=== PATIENT | female | born 1975 | race African-American/Black ===

== ENCOUNTER 2016-10-23 14:21 | Emergency (ER) | payer SELFPAY ==
[2016-10-23 14:25] VITALS: BP 155/94; PULSE 100; TEMP 98; BMI 56.4
--- NOTE | 2016-10-23 15:29 | PDOC ---
History of Present Illness - General Chief Complaint: Wound Infection Stated Complaint: R HAND FINGER SWOLLEN/PAIN Time Seen by Provider: 10/23/16 15:05 History Source: Patient Exam Limitations: No Limitations - History of Present Illness Initial Comments: 10/23/16 15:21 Patient is a 41-year-old female presents emergency department for evaluation of infection to cuticle base of right third finger citucle base. Patient reports that she had acrylic nails on, cracked nail and then had it fixed, started to have pain and then soaked the acrylic off. Noticed discoloration and pain to the cuticle base of the finger. Past Medical History: Denies. Allergies: No known allergies Medications: see medication list Family History: Non-contributory Social History: Denies smoking, alcohol use, or IVDU Review of Systems GENERAL/CONSTITUTIONAL: No fever or chills. No weakness. No weight change. HEAD, EYES, EARS, NOSE AND THROAT: No change in vision. No ear pain or discharge. No sore throat. CARDIOVASCULAR: No chest pain or shortness of breath. RESPIRATORY: No cough, wheezing, or hemoptysis. GASTROINTESTINAL: No nausea, vomiting, diarrhea or constipation. No rectal bleeding. GENITOURINARY: No dysuria, frequency, or change in urination. MUSCULOSKELETAL: No joint or muscle swelling or pain. No neck or back pain. SKIN AND BREASTS: No rash or easy bruising. Pale swollen cuticle base and tip of the right third finger. Physical Exam: GENERAL: The patient is awake, alert, and fully oriented, in no acute distress. HEAD: Normal with no signs of trauma. EYES: Pupils equal, round and reactive to light, extraocular movements intact, sclera anicteric, conjunctiva clear. ENT: Ears normal, nares patent, oropharynx clear without exudates. Moist mucous membranes. No uvula deviation NECK: Normal range of motion, supple without lymphadenopathy, JVD, or masses. LUNGS: Breath sounds equal, clear to auscultation bilaterally. No wheezes, and no crackles. HEART: Regular rate and rhythm, normal S1 and S2 without murmur, rub or gallop. ABDOMEN: Soft, nontender, normoactive bowel sounds. No guarding, no rebound. No masses. No bruising or abrasions RECTAL : Guaiac negative, normal rectal tone. MUSCULOSKELETAL: Normal range of motion, no edema. No clubbing or cyanosis. No cords, erythema, or tenderness. No CVA Tenderness with fist. NEUROLOGICAL: Cranial nerves II through XII grossly intact. Normal speech, normal gait. PSYCH: Normal mood, normal affect. SKIN: Warm, Dry, normal turgor, no rashes or lesions noted. Pale, pus filled swollen cuticle base and tip of the right third finger. 10/23/16 15:33 Past History - Past Medical History Allergies/Adverse Reactions: Allergies Allergy/AdvReac Type Severity Reaction Status Date / Time No Known Allergies Allergy Verified 10/23/16 14:25 Home Medications: Ambulatory Orders Celecoxib [Celebrex] 200 mg PO DAILY 10/23/16 Cephalexin [Keflex] 500 mg PO QID #40 capsule 10/23/16 Pregabalin [Lyrica] 100 mg PO BID 10/23/16 Asthma: No Cancer: No Cardiac Disorders: No Diabetes: No HTN: Yes (no meds ) Seizures: No Thyroid Disease: No Other medical history: ARTHRITIS - Psycho/Social/Smoking Cessation Hx Anxiety: No Suicidal Ideation: No Smoking History: Never smoked Information on smoking cessation initiated: No Hx Alcohol Use: No Drug/Substance Use Hx: No Hx Substance Use Treatment: No *Physical Exam - Vital Signs Last Vital Signs Temp Pulse Resp BP Pulse Ox 98 F 100 H 18 155/94 100 10/23/16 14:23 10/23/16 14:23 10/23/16 14:23 10/23/16 14:23 10/23/16 14:23 Procedures - Incision and Drainage I&D Site: Right: Paronychia (right third finger), Other Betadine cleansed: Yes Attempts: 1 Progress: 10/23/16 15:38 Area cleansed with Betadine using topical ethyl chloride topically anesthetized using an 18-gauge needle slightly the cuticle from the cuticle base. Approximately 2 mL of pustulant drainage removed, wound culture sent. Medical Decision Making - Medical Decision Making 10/23/16 15:38 A/P: Patient here for evaluation of paronychia, finger soaked in Betadine, under sterile technique there is Betadine applied to base of nail, using an 18- gauge needle cuticle from nail base, 2 mL of pustulant drainage removed, area soaked a pad and warm water and Betadine, dressing applied. We'll DC patient home on Keflex, warm soaks 4 times a day, refrain from getting nails done. *DC/Admit/Observation/Transfer Diagnosis at time of Disposition: Paronychia - Discharge Dispostion Disposition: HOME Condition at time of disposition: Good Admit: No - Prescriptions Prescriptions: Cephalexin [Keflex] 500 mg PO QID #40 capsule - Referrals Referrals: Jairo Brown MD [Primary Care Provider] - - Patient Instructions Additional Instructions: Warm soaks to finger 4 times a day Antibiotics as ordered Follow-up if any increased redness, swelling, or signs of infection Refrain from placing any lotions any nail chinese or artificial nail to finger.
== END 2016-10-23 15:50 | disposition home or self-care (01) ==
LOC: JERFT 14:21
PROC: 0H9QXZZ Drainage of Finger Nail, External Approach (ICD-10-PCS; principal; 2016-10-23)
DX: L03.011 Cellulitis of right finger (principal); I10 Essential (primary) hypertension; M12.9 Arthropathy, unspecified
CPT/HCPCS: 87070; 87077; 87186; 87205; 99281-25

== ENCOUNTER 2018-08-08 11:07 | Emergency (ER) | payer OTHER, BC | END 2018-08-08 12:28 | disposition home or self-care (01) | LOC: JERFT 11:07 ==

== ENCOUNTER 2020-05-16 04:15 | Day surgery (SDC) | payer OTHER ==
[2020-05-13 13:53] VITALS: BMI 58.0
[2020-05-16] MEDS ORDERED: DEXAMETHASONE SOD PHOSPHATE 10 MG/1 ML VIAL IVPUSH ONE (14:11)
[2020-05-16] MEDS ORDERED: LIDOCAINE HCL 1%, 10 MG/ML (50 mL VIAL) INF ONE (14:11)
[2020-05-16] MEDS ORDERED: IOHEXOL 180 MG/1 ML ML IJ ONE (14:11)
[2020-05-16 14:59] VITALS: BP 142/79; PULSE 78; TEMP 98.2
== END 2020-05-16 14:56 | disposition home or self-care (01) ==
LOC: JASU-SURG 04:15
PROVIDERS: ATTEND Pain Medicine Pain Medicine
PROC: 3E0R33Z Introduction of Anti-inflammatory into Spinal Canal, Percutaneous Approach (ICD-10-PCS; 2020-05-16)
PROC: B01BYZZ Fluoroscopy of Spinal Cord using Other Contrast (ICD-10-PCS; 2020-05-16)
PROC: 3E0R3BZ Introduction of Anesthetic Agent into Spinal Canal, Percutaneous Approach (ICD-10-PCS; principal; 2020-05-16 13:30)
DX: M54.16 Radiculopathy, lumbar region (principal); M48.061 Spinal stenosis, lumbar region without neurogenic claudication; Z68.43 Body mass index [BMI] 50.0-59.9, adult
CPT/HCPCS: 76000-TC-FY; 81025; J1100

== ENCOUNTER 2022-07-06 10:59 | Emergency (ER) | payer OTHER ==
[2022-07-06 11:16] VITALS: BP 163/92; PULSE 95; RESP 20; TEMP 98.7; BMI 48.8
[2022-07-06] MEDS ORDERED: ACETAMINOPHEN 1000 MG/100 ML BAG IVPB ONE (11:42)
[2022-07-06] MEDS ORDERED: ACETAMINOPHEN INJECTION 100 ML IVPB ONE (11:47)
[2022-07-06 12:11] LABS: BASO % 1.1 % (0-2.0); EOS % 1.4 % (0-4.5); HEMATOCRIT 34.9 % (32.4-45.2); HEMOGLOBIN 11.1 GM/dL (10.7-15.3); LYMPH % 42.4 % (8-40); MCH 22.8 pg (25.7-33.7); MCHC 31.8 g/dl (32.0-36.0); MEAN CELL VOLUME 71.6 fl (80-96); MEAN PLT VOLUME 8.3 fl (7.5-11.1); NEUT % 48.1 % (42.8-82.8); PLATELET COUNT 320 10^3/uL (134-434); RBC 4.86 M/mm3 (3.60-5.2); RDW 18.4 % (11.6-15.6); WHITE BLOOD COUNT 8.3 K/mm3 (4.0-10.0)
[2022-07-06 12:33] LABS: POTASSIUM 5.8 mmol/L (3.5-5.1)
[2022-07-06 12:35] LABS: CALCIUM 9.2 mg/dL (8.5-10.1)
[2022-07-06 12:36] LABS: ALBUMIN 3.3 g/dl (3.4-5.0); BLOOD UREA NITROGEN 10.2 mg/dL (7-18)
[2022-07-06 12:38] LABS: CREATININE 0.9 mg/dL (0.55-1.3)
[2022-07-06 12:40] LABS: BILIRUBIN,TOTAL 0.6 mg/dL (0.2-1); TOT PROT 7.9 g/dl (6.4-8.2)
[2022-07-06 14:21] LABS: EPI CELLS >36 /uL (0-25.1); HYALINE CASTS 1 /uL (0-3.1); URINE APPEARANCE CLOUDY; URINE BACTERIA >9,000 /uL (0-1359); URINE BILIRUBIN NEGATIVE (NEGATIVE); URINE COLOR YELLOW; URINE GLUCOSE (UA) NEGATIVE (NEGATIVE); URINE KETONE NEGATIVE (NEGATIVE); URINE LEUK ESTERASE NEGATIVE (NEGATIVE); URINE NITRITE POSITIVE (NEGATIVE); URINE PROTEIN NEGATIVE (NEGATIVE); URINE RBC 26 /uL (0-23.9); URINE UROBILINOGEN 0.2 mg/dL (0.2-1.0)
[2022-07-06] MEDS ORDERED: SULFAMETHOXAZOLE/TRIMETHOPRIM 800MG/160MG D.S. TABLET PO ONE (14:54)
[2022-07-06] MEDS ORDERED: SULFAMETHOXAZOLE/TRIMETHOPRIM 800MG/160MG D.S. TABLET ONE (14:56)
[2022-07-06 15:08] LABS: URINE WBC 66.7 /uL (0-25.8)
== END 2022-07-06 15:05 | disposition home or self-care (01) ==
LOC: JERFT 10:59
PROC: 3E033NZ Introduction of Analgesics, Hypnotics, Sedatives into Peripheral Vein, Percutaneous Approach (ICD-10-PCS; principal; 2022-07-06)
DX: N39.0 Urinary tract infection, site not specified (principal); R10.11 Right upper quadrant pain; R10.31 Right lower quadrant pain
CPT/HCPCS: 36415; 74177-TC; 80053; 81003; 83690; 84703; 85025; 87086; 87186; 99285-25; Q9967